=== PATIENT | male | born 1995 | race Caucasian/White ===

== ENCOUNTER 2021-05-22 17:46 | Emergency (ER) | payer BC ==
[2021-05-22] MEDS ORDERED: Albuterol 8 GM Inhaler INH PRN (18:21)
--- NOTE | 2021-05-22 18:30 | EDM.PDOC ---
ED HPI GENERAL MEDICAL PROBLEM - General Chief Complaint: General Stated Complaint: cough, chills Time Seen by Provider: 05/22/21 18:15 Source of Information: Reports: Patient History Limitations: Reports: No Limitations - History of Present Illness INITIAL COMMENTS - FREE TEXT/NARRATIVE: This is a 25 year old male that presents to the ED with flu-like symptoms for about 1 week. Patient reports previous history of asthma. State he has had more difficult time breathing at night is able to cough and symptoms clear. States he has not had an inhaler for about a year. Stated he had recently traveled. Reports body aches, fever, and cough. Thought he began to feel better yesterday and feels a bit worse now today. Unknown exposures to any close contacts with COVID of influenza. Onset: Gradual Duration: Week(s): (1) Location: Reports: Generalized Quality: Reports: Ache Severity: Mild Improves with: Reports: None Worsens with: Reports: None Associated Symptoms: Reports: Cough, Fever/Chills - Related Data Allergies Allergy/AdvReac Type Severity Reaction Status Date / Time No Known Allergies Allergy Verified 05/22/21 17:49 Home Meds: Home Meds . [No Known Home Meds] 05/22/21 [History] Past Medical History - Past Health History Medical/Surgical History: Denies Medical/Surgical History Social & Family History - Tobacco Use Tobacco Use Status *Q: Current Every Day Tobacco User Years of Tobacco use: 3 Packs/Tins Daily: 0.5 - Caffeine Use Caffeine Use: Reports: None ED ROS GENERAL - Review of Systems Review Of Systems: Comprehensive ROS is negative, except as noted in HPI. ED EXAM, GENERAL - Physical Exam Exam: See Below Exam Limited By: No Limitations General Appearance: Alert, WD/WN, No Apparent Distress Ears: Normal External Exam, Hearing Grossly Normal Nose: Normal Inspection, Normal Mucosa Throat/Mouth: Normal Inspection, Normal Voice, No Airway Compromise Head: Atraumatic, Normocephalic Neck: Normal Inspection, Supple, Non-Tender Respiratory/Chest: No Accessory Muscle Use, Chest Non-Tender, Wheezing Cardiovascular: Regular Rate, Rhythm, No Gallop, No Murmur, No Rub GI/Abdominal: Soft, Non-Tender (Male) Exam: Deferred Rectal (Males) Exam: Deferred Extremities: Normal Inspection, Normal Range of Motion Neurological: Alert, Oriented, Normal Cognition Psychiatric: Normal Affect, Normal Mood Skin Exam: Warm, Dry, Intact Course - Vital Signs Last Recorded V/S: Last Vital Signs Temp 100.3 F 05/22/21 17:46 Pulse 110 H 05/22/21 17:46 Resp 18 05/22/21 17:46 BP 123/88 05/22/21 17:46 Pulse Ox 96 05/22/21 17:46 - Orders/Labs/Meds Orders: Active Orders 24 hr Category Date Time Status RT Post Treatment Assessment [RC] Click to Edit Care 05/22/21 18:23 Ordered RT Pre-Treatment Assessment [RC] Click to Edit Care 05/22/21 18:23 Ordered Albuterol [Ventolin HFA] Med 05/22/21 18:21 Ordered 1 - 2 gm INH Q4H PRN Isolation [COMM] Routine Oth 05/22/21 17:50 Active Labs: Laboratory Tests 05/22/21 Range/Units 18:00 SARS CoV-2 RNA Rapid MIGUEL Negative (NEGATIVE) - Re-Assessments/Exams Free Text/Narrative Re-Assessment/Exam: This is a 25 year old male that presented to the ED with flu-like symptoms. Obtained COVID and influenza. Patient positive for influenza B. Patient has not had inhaler for about a year as he reported asthma in the past. Plan will be discharged home for symptomatic management of influenza. Instructed that he may use Tylenol or ibuprofen for fever or discomfort. Due to symptoms for about one week he does not meet recommended guidelines for Tamiflu. An albuterol inhaler prescribed and dispensed for dyspnea and wheezing related to asthma. Stay hydrated by drinking plenty of fluids. Call or return if symptoms worsen or if you have questions. Departure - Departure Time of Disposition: 18:24 Disposition: Home, Self-Care 01 Clinical Impression: Influenza B Asthma Qualifiers: Asthma severity: mild Asthma persistence: unspecified Asthma complication type: unspecified Qualified Code(s): J45.909 - Unspecified asthma, uncomplicated - Discharge Information *PRESCRIPTION DRUG MONITORING PROGRAM REVIEWED*: Not Applicable *COPY OF PRESCRIPTION DRUG MONITORING REPORT IN PATIENT MAURA: Not Applicable Instructions: Asthma, Adult, Influenza, Adult Referrals: PCP,None [Primary Care Provider] - Additional Instructions: 1. Use inhaler as directed. 2. Treat influenza symptomatically. 3. May use Tylenol and ibuprofen. 4. Stay hydrated by drinking plenty of fluids. 5. Follow-up or return is symptoms worsen or you have any questions Sepsis Event Note (ED) - Evaluation Sepsis Screening Result: No Definite Risk - Focused Exam Vital Signs: Vital Signs Temp Pulse Resp BP Pulse Ox 05/22/21 17:46 100.3 F 110 H 18 123/88 96 - My Orders Last 24 Hours: My Active Orders 05/22/21 17:50 Isolation [COMM] Routine 05/22/21 18:21 Albuterol [Ventolin HFA] 1 - 2 gm INH Q4H PRN 05/22/21 18:23 RT Post Treatment Assessment [RC] Click to Edit RT Pre-Treatment Assessment [RC] Click to Edit - Assessment/Plan Last 24 Hours: My Active Orders 05/22/21 17:50 Isolation [COMM] Routine 05/22/21 18:21 Albuterol [Ventolin HFA] 1 - 2 gm INH Q4H PRN 05/22/21 18:23 RT Post Treatment Assessment [RC] Click to Edit RT Pre-Treatment Assessment [RC] Click to Edit
== END 2021-05-22 18:39 | disposition home or self-care (01) ==
LOC: CC.ED 17:46 → SUPCPDRO 17:46 → CC.ED 18:39
DX: J10.1 Influenza due to other identified influenza virus with other respiratory manifestations (principal); J45.909 Unspecified asthma, uncomplicated; Z20.822 Contact with and (suspected) exposure to COVID-19; Z72.0 Tobacco use
CPT/HCPCS: 87635; 87804; 99284; A9270; U0002

== ENCOUNTER 2022-03-17 10:40 | Emergency (ER) | payer BC | END 2022-03-17 11:45 | disposition home or self-care (01) | LOC: CC.ED 10:40 | DX: K52.9 Noninfective gastroenteritis and colitis, unspecified (principal) | CPT/HCPCS: 99283; U0002 ==

== ENCOUNTER 2025-02-21 06:24 | Emergency (ER) | payer BC ==
[2025-02-21] MEDS: methylPREDNISolone Sodium Succinate 125 MG/2 ML SDV IVPUSH ONE (06:52)
== END 2025-02-21 07:30 | disposition home or self-care (01) ==
LOC: CC.ED 06:24 → SUPCPDRO 06:24 → CC.ED 07:30
DX: J45.21 Mild intermittent asthma with (acute) exacerbation (principal); F17.200 Nicotine dependence, unspecified, uncomplicated; Z79.899 Other long term (current) drug therapy
CPT/HCPCS: 71046; 94640; 96374; 99285-25; A9270-GY; J2919